=== PATIENT | male | born 1950 ===

== ENCOUNTER 2017-12-28 12:48 | Outpatient (RCR) | payer MEDICARE ==
[~2017-12-28 12:48] MED LIST: ASPI-1471 PO; ATOR10TA65 PO; CLOP75TA43 PO
[2017-12-29] MEDS ORDERED: [UNRECOGNIZED DRUG - CODE] TP (10:51)
[2017-12-29] MEDS ORDERED: MOXI3DRO2 OD (10:51)
[2017-12-29] MEDS ORDERED: PRED5DRO34 OP (10:51)
[2017-12-29] MEDS ORDERED: RIVA15TA PO (10:51)
== END 2018-01-03 13:25 | disposition home or self-care (01) ==
LOC: RAON 12:48
PROVIDERS: ATTEND Radiology Radiation Oncology
DX: C61 Malignant neoplasm of prostate (principal); Z92.3 Personal history of irradiation; Z79.82 Long term (current) use of aspirin; Z79.899 Other long term (current) drug therapy; Z87.891 Personal history of nicotine dependence
CPT/HCPCS: 99212

== ENCOUNTER 2018-08-29 14:42 | Outpatient (RCR) | payer MEDICARE ==
[~2018-08-29 14:42] MED LIST changes: +MOXI3DRO2 OD; +PRED5DRO34 OP; +RIVA15TA PO; +[UNRECOGNIZED DRUG - CODE] TP
--- NOTE | 2018-09-13 14:55 | ONCOLOGY FOLLOW UP NOTE ---
EVENT DATE: August 29, 2018 CHIEF COMPLAINT Known history of prostate carcinoma. Patient is here to review updated PSA. ONCOLOGY HISTORY 1. [place] 3 + 3 = 6, high volume adenocarcinoma of the prostate. Tumor occupied eight cores with a [place] 6 tumor, and one core had a [place] 7 carcinoma at diagnosis in 2016. 2. Patient received external beam radiation therapy to 7920 cGy with multifield shrinking technique, completed 07/17/16. INTERVAL HISTORY Patient drove over from [place] today for followup appointment. He informs me that he has been seen frequently by Dr. Zeng in the last three months and Infection Disease up in [place]. He had an infection in his right groin. I am uncertain from his history whether that was related to prior hernia that got infected, or alternatively he has also had vascular surgery in the right groin by Dr. Zeng in 2014. Patient states he is on oral Bactrim at this time and doing considerably better. Bowels are fairly regular. PSA was drawn this morning and is stable at 0.7 ng/mL. This is an excellent number for the patient and his lowest number since the end of treatment. He is now approximately two years remote from therapy. No voiding issues or difficulties. MEDICATIONS 1. Aspirin 81 mg p.o. daily. 2. Atorvastatin 10 mg p.o. daily. 3. Beta Care Cream p.r.n. 4. Clopidogrel 75 mg p.o. daily. 5. Moxifloxacin 0.5% drops, one drop right eye t.i.d. 6. Prednisone acetate t.i.d. 7. Rivaroxaban 15 mg p.o. daily. ALLERGIES No known drug allergies. Patient states he is seeing a new doctor in [place] (Dr. Coulter). COMPREHENSIVE REVIEW OF SYSTEMS RESPIRATORY: Minor shortness of breath. GENITOURINARY: Right groin infection with history listed in HPI. Fairly normal urinary control for the last 10-12 months. PHYSICAL EXAMINATION GENERAL: Pleasant, 68-year-old male of tall build. VITAL SIGNS: Weight 194. BP 104/90, pulse 68, respirations 16, O2 sat 93%. LYMPHATICS: No lymphadenopathy. LUNGS: Clear bilaterally. HEART: Sounds regular. ABDOMEN: Soft. No gross organomegaly. RECTAL: Deferred since the last exam was normal, and PSA is stable. IMPRESSION Intermediate risk [place] 6 and [place] 7 adenocarcinoma of the prostate. Patient is now over two years remote from therapy and doing exceptionally well in my opinion with a stable PSA of less than 1. The number is specifically 0.7 ng/mL, and the PSA has continued to fall since treatment. PLAN He will return to see me in [facility] in six months for convenience and on the same day PSA in March. No medication changes were required today. MTDD
== END 2018-10-03 11:44 | disposition home or self-care (01) ==
LOC: RAON 14:42
PROVIDERS: ATTEND Radiology Radiation Oncology
DX: Z85.46 Personal history of malignant neoplasm of prostate (principal); Z92.3 Personal history of irradiation; Z79.899 Other long term (current) drug therapy